=== PATIENT | male | born 1995 | race Caucasian/White ===

== ENCOUNTER 2021-02-27 16:25 | Emergency (ER) | payer BC, SELFPAY ==
--- NOTE | ~2021-02-27 | XR_ITS ---
EXAMINATION: XR foot LT min 3V DATE: 02/27/2021 16:52 INDICATION: Diffuse left foot pain post fall TECHNIQUE: Dorsoplantar, two oblique and lateral views of the left foot were obtained. COMPARISON: None. FINDINGS: Alignment is normal. No fracture. Joint spaces are normal. Bone island at the anterior talus. Soft ti ssues are unremarkable. IMPRESSION: 1. Negative left foot radiographs. Reviewed, dictated and finalized at location A.
[2021-02-27 16:35] VITALS: BP 125/78; PULSE 67; RESP 16; TEMP 37.2; O2SAT 99
--- NOTE | 2021-02-27 16:35 | PC.NURSE ---
to waiting room. aware of no exam room open and aware of xpc status.
--- NOTE | 2021-02-27 16:41 | PC.NURSE ---
to xray from wait room and then to room 6
--- NOTE | 2021-02-27 17:24 | ED.LOWEXIN ---
HPI - Extremity Injury (Lower) General Chief Complaint: Extremity Injury, Lower Stated Complaint: lt foot injury Time Seen by Provider: 02/27/21 17:20 Source: patient Mode of arrival: ambulatory Limitations: no limitations History of Present Illness HPI Narrative: Jim Loomis is a [age]-year-old male [facility] with [facility] left foot injury when he was using a skateboard yesterday; on the side of his left foot and fell to the ground his had swelling and ecchymosis to the left lower part of his foot dorsum side and is unable to step and put pressure without pain Related Data Allergies Allergy/AdvReac Type Severity Reaction Status Date / Time No Known Allergies Allergy Verified 09/03/13 21:55 Review of Systems Review of Systems: CONSTITUTIONAL: Denies fever, chills, sweats. EYES: Denies visual changes, redness, discharge. ENT: Denies rhinorrhea, congestion, sore throat, otalgia. CARDIOVASCULAR: Denies chest pain, palpitations, edema. RESPIRATORY: Denies dyspnea, wheezing, cough GASTROINTESTINAL: Denies abdominal pain, nausea, vomiting, diarrhea. GENITOURINARY: Denies dysuria, hematuria, abnormal discharge SKIN: Denies rash or itching. NEUROLOGIC: Denies numbness, or focal weakness. PSYCHIATRIC: Denies anxiety or depression. 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 There is no relevant family history pertinent to the presenting complaint. Exam Narrative: GENERAL: This is a well-nourished, well-developed patient, in mild distress. HEAD: normocephalic, atraumatic. EYES: . Sclera clear/white. Vision is grossly intact. EARS: External ears normal,. Hearing grossly intact. NOSE: External nose normal without nasal discharge, nares without redness, no rhinorrhea. THROAT: Mucous membranes moist, NECK: Neck supple, CARDIOVASCULAR: Regular rate and rhythm without murmurs, gallops, or rubs. RESPIRATORY: Clear to auscultation. Breath sounds equal bilaterally. No wheezes, rales, or rhonchi. GASTROINTESTINAL: Abdomen soft, SKIN: warm, intact with no suspicious lesions or rash, good texture and turgor. NEURO: awake, alert, and oriented to person, place and time. There were no obvious focal neurologic abnormalities. Steady gait EXTREMITIES: Normal range of motion. Pain on left foot soft tissue injury with ecchymosis to the lateral side dorsum, tender to touch 2+ pedal pulse color good BACK: Nontender without deformity Course Course Emergency Course: Patient here after skateboard accident yesterday where he landed on the dorsum lateral side of foot Ibuprofen 800 mg 3 times daily as needed he is to ice foot and keep compression on his left foot Vital Signs Vital signs: Vital Signs Temperature 98.9 F 02/27/21 16:35 Pulse Rate 67 02/27/21 16:35 Respiratory Rate 16 02/27/21 16:35 Blood Pressure 125/78 02/27/21 16:35 Pulse Oximetry 99 02/27/21 16:35 Temperature 98.9 F 02/27/21 16:35 Pulse Rate 67 02/27/21 16:35 Respiratory Rate 16 02/27/21 16:35 Blood Pressure 125/78 02/27/21 16:35 Pulse Oximetry 99 02/27/21 16:35 MDM - Extremity Injury (Lower) Differential Diagnosis Differential diagnosis: Likely ankle sprain and strain, fracture of toe and other (Soft tissue injury versus ankle sprain) Critical Care Time Critical Care Time Critical Care Time: No D
== END 2021-02-27 17:43 | disposition home or self-care (01) ==
PROVIDERS: Emergency Provider Nurse Practitioner
DX: M79.9 Soft tissue disorder, unspecified (principal)
CPT/HCPCS: 73630; 99213; G0463

== ENCOUNTER 2021-09-09 16:27 | Emergency (ER) | payer OTHER, BC, SELFPAY ==
[2021-09-09 16:37] VITALS: BP 116/64; PULSE 72; RESP 16; TEMP 37.1; O2SAT 100
--- NOTE | 2021-09-09 16:37 | ED.EAR ---
HPI - Ear Problem General Chief complaint: Ear Stated complaint: Loss of hearing left ear Time Seen by Provider: 09/09/21 16:38 Source: patient, RN notes reviewed and old records reviewed Mode of arrival: ambulatory Limitations: no limitations History of Present Illness HPI Narrative: 26-year-old male presents to the [facility] with decreased hearing without pain to the left ear. States is been getting worse over the last 3 to 4 days. Denies headache. Denies fevers. Denies any upper respiratory infection symptoms. MD Complaint: ear pain and decreased hearing (left ear) Location: left ear Related Data Home Medications Medication Instructions Recorded Confirmed No Home Medications 09/09/21 09/09/21 Allergies Allergy/AdvReac Type Severity Reaction Status Date / Time No Known Allergies Allergy Verified 09/09/21 16:33 Review of Systems Review of Systems: All systems reviewed & are unremarkable except as noted in HPI and below Constitutional: Constitutional: Reports no additional constitutional complaints, Denies chills and Denies fever(s) Eyes: Eyes: Reports no additional eye complaints ENT: Reports as per HPI, Denies change in voice, Denies dental pain, Denies vertigo, Denies dizziness and Denies throat swelling Comments: Left ear, decreased hearing without pain Cardiovascular: Cardiovascular: Reports no additional cardiovascular complaints, Denies chest pain and Denies dyspnea Respiratory: Respiratory: Reports no additional respiratory complaints, Denies cough and Denies dyspnea Gastrointestinal: Gastrointestinal: Reports no additional gastrointestinal complaints, Denies abdominal pain, Denies nausea and Denies vomiting Musculoskeletal: Musculoskeletal: Reports no additional musculoskeletal complaints Integumentary/Breasts: Skin/Breast: Reports system reviewed and no additional complaints, except as docu Neurologic: Reports system reviewed and no additional complaints, except as documented, Denies vertigo and Denies dizziness Psychiatric: Psychiatric: Reports no additional psychiatric complaints Allergic/Immunologic: Allergic/Immunologic: Reports no additional allergic/immunologic complaints and Denies throat swelling PMFSH Past Medical History Medical History BMI 21.0-21.9, adult Family History Family History (Updated 02/27/21 @ 17:34 by Allison oSares CNP) Father Hypertension Social History Social History Smoking status: Never smoker Alcohol intake: current Alcohol use details: occasional 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 There is no relevant family history pertinent to the patient complaint. Exam Const: General: healthy appearing and no acute distress Nutritional Appearance: well nourished Orientation/consciousness: patient oriented x3 Limitations: no limitations HENMT: Head: normal to inspection Ears: external ears normal, TM's normal bilaterally and Abnormal EAC present cerumen impaction on the left; no erythema, no edema, no EA tenderness, no foreign body and no otic discharge General nose exam: Normal external nose present and Normal nasal mucous membranes and turbinates present Face and sinus: normal facial exam Mouth: Yes Normal oral and palatal mucosa present Throat: posterior oropharynx normal, tonsils normal and uvula midline Eyes: Conjunctivae: conjunctivae normal Pupils: Equal, round and reactive pupils present Neck: Neck: normal visual inspection, no lymphadenopathy and no meningeal signs Chest: Chest palpation & inspection: normal inspection of the chest Resp: Effort & Inspection: normal respiratory effort and no use of accessory muscles Au
== END 2021-09-09 16:45 | disposition home or self-care (01) ==
PROVIDERS: Emergency Provider Nurse Practitioner
DX: H61.22 Impacted cerumen, left ear (principal)
CPT/HCPCS: 69210; 99212; G0463